=== PATIENT | male | born 1980 | race Caucasian/White ===

== ENCOUNTER 2020-06-22 06:45 | Emergency (ER) | payer OTHER, SELFPAY ==
[2020-06-22 06:50] VITALS: BP 156/108; PULSE 82; RESP 18; TEMP 36.7; O2SAT 96
--- NOTE | 2020-06-22 07:14 | ED.DENTAL ---
HPI - Dental/Oral General Chief complaint: Dental/Oral Stated complaint: facial swelling, dental issues Time Seen by Provider: 06/22/20 07:13 Source: patient and family Mode of arrival: ambulatory Limitations: no limitations History of Present Illness HPI Narrative: Patient is a 40-year-old male who presents for evaluation of right upper molar pain with some facial swelling. Patient states symptoms have developed over the past 24 hours. Reports dull, aching pain in his right upper face with mild swelling and redness. No vision changes. No fever. No difficulty swallowing. Patient has a history of dental caries, does have dental follow-up established. Patient denies any shortness of breath or difficulty breathing. No trauma to the face. MD Complaint: tooth pain Location: Tooth # (3) Context: history of dental caries Treatment prior to arrival: none Related Data Allergies Allergy/AdvReac Type Severity Reaction Status Date / Time No Known Allergies Allergy Verified 02/17/19 15:59 Review of Systems Review of Systems: Narrative: CONSTITUTIONAL: Denies fever CARDIOVASCULAR: Denies chest pain RESPIRATORY: Denies cough or dyspnea. GASTROINTESTINAL: Denies abdominal pain SKIN: Denies rash MUSCULOSKELETAL: Denies back pain NEUROLOGIC: Denies headache [facility] Past Medical History Medical History History of coronary artery disease History of diabetes mellitus History of gastroesophageal reflux (GERD) History of hyperlipidemia Social History Social History Smoking status: Current every day smoker Gender identity (if verbalized by the patient): Male Exam Narrative: Exam Narrative: GENERAL: Awake, alert, conversant HEAD: Normocephalic, atraumatic. EYES: PERRLA and EOMI. ENT: Nares clear, no rhinorrhea or epistaxis. Mucous membranes moist. Uvula is midline. No trismus. Able to fully open mouth, extensive dental caries, decay and mild erythema about molar 3 without evidence of abscess. No purulent drainage. Gingiva are erythematous without edema. No elevation of the palate. Patient is speaking normally. Mild edema extending from the molar to the maxilla. No fluctuance. Mild induration. No significant erythema. NECK: Supple. No cervical lymphadenopathy. No neck edema. CHEST: No respiratory distress, breathing even and non labored HEART: Regular rate, sinus rhythm ABDOMEN:Non distended, non tender EXTREMITIES: Normal range of motion. No edema. SKIN: Warm, dry, no rash. NEURO:No focal deficits. Alert and oriented x3 Course Vital Signs Vital signs: Vital Signs Temperature 36.7 C 06/22/20 06:50 Pulse Rate 82 06/22/20 06:50 Respiratory Rate 18 06/22/20 06:50 Blood Pressure 156/108 H 06/22/20 06:50 Pulse Oximetry 96 06/22/20 06:50 Temperature 36.7 C 06/22/20 06:50 Pulse Rate 82 06/22/20 06:50 Respiratory Rate 18 06/22/20 06:50 Blood Pressure 156/108 H 06/22/20 06:50 Pulse Oximetry 96 06/22/20 06:50 MDM - Dental/Oral MDM Narrative Medical decision making narrative: Patient's pain is consistent with dental caries. At the time of assessment there are no signs of systemic illness, no focal signs of space-occupying abscess or lesions, no signs of [place] angina or other concerning retropharyngeal infection. The patient is controlling his secretions well without signs of airway compromise. Patient is thought reasonable for outpatient follow-up with dental evaluation. Patient given oral antibiotics and medication for analgesia. He was given strict return precautions. Differential Diagnosis Differential diagnosis: Likely gingival abscess, dental caries, toothache, dental abscess and fracture of tooth Discharge Plan Discharge Clinical Impression: Toothache, Dental caries Patient Disposition: Home, Self-Care Condition: Stable Instructions: Antibiotic Form, Toothache (
[2020-06-22] MEDS: KETOROLAC (*BKC) 60 MG/2 ML VIAL 30 MG IM (08:02)
[2020-06-22] MEDS: oxyCODONE/ACETAMINOPHEN (*CRX) 5-325 MG TABLET 1 TABLET PO (08:03)
== END 2020-06-22 08:09 | disposition home or self-care (01) ==
PROVIDERS: Emergency Provider Emergency Medicine; PCP Family Medicine
DX: K02.9 Dental caries, unspecified (principal); I25.10 Atherosclerotic heart disease of native coronary artery without angina pectoris; E11.9 Type 2 diabetes mellitus without complications; K21.9 Gastro-esophageal reflux disease without esophagitis; E78.5 Hyperlipidemia, unspecified
CPT/HCPCS: 96372; 99283; A9270; J1885

== ENCOUNTER 2021-04-03 12:23 | Emergency (ER) | payer OTHER, SELFPAY ==
--- NOTE | ~2021-04-03 | XR_ITS ---
EXAMINATION: XR ribs RT 2V EXAM DATE: 04/03/2021 13:34 INDICATION: Right lateral rib pain when coughing. No known recent injury. TECHNIQUE: Frontal projection of the upper right ribs, frontal projection of the lower right ribs, ob lique projection of the right ribs, without chest x-ray(s) for interpretation. Correlation made to c hest x-ray from earlier same date FINDINGS: There are no displaced acute right rib fractures identified. There is no soft tissue abno rmality seen. IMPRESSION: No displaced right rib fractures. Reviewed, dictated and finalized at location A. MODEL
--- NOTE | ~2021-04-03 | XR_ITS ---
EXAMINATION: XR chest 2V EXAM DATE: 04/03/2021 13:18 INDICATION: chest pain TECHNIQUE: Frontal and lateral projections of the chest obtained and reviewed. Comparison is made to prior examination from 05/13/2017. FINDINGS: The lungs are clear. There are no pleural effusions. The cardiomediastinal silhouette is within normal limits. There is no pneumothorax suspected. The bones and soft tissues are unremarkab le. IMPRESSION: No acute cardiopulmonary findings. Reviewed, dictated and finalized at location A. B PLANTER
[2021-04-03 12:28] VITALS: BP 181/98; PULSE 100; RESP 14; TEMP 36.6; O2SAT 95
[2021-04-03 12:40] VITALS: PULSE 95
[2021-04-03 12:42] VITALS: RESP 12
--- NOTE | 2021-04-03 13:19 | ED.GENADULT ---
HPI - General Adult General Chief complaint: Unspecified Stated complaint: rib pain Time Seen by Provider: 04/03/21 13:01 History of Present Illness HPI narrative: 40-year-old male presents to the emergency room with right anterior chest wall pain that radiates to his back for 3 to 4 weeks. Patient states he has a chronic cough. States when coughing he developed the chest pain. Denies injury or trauma to the chest wall. Reports having an albuterol inhaler, which does not relieve his coughing. Related Data Allergies Allergy/AdvReac Type Severity Reaction Status Date / Time No Known Allergies Allergy Verified 02/17/19 15:59 Review of Systems Review of Systems: CONSTITUTIONAL: Denies fever, chills, or sweats. EYES: Denies visual changes, redness, or discharge. ENT: Denies rhinorrhea, congestion, sore throat, or otalgia. CARDIOVASCULAR: Denies chest pain, palpitations, or edema. RESPIRATORY: Reports cough. GASTROINTESTINAL: Denies abdominal pain, nausea, vomiting, or diarrhea. GENITOURINARY: Denies dysuria or hematuria. SKIN: Denies rash or itching. MUSCULOSKELETAL: Denies back pain, joint pain, or myalgia. NEUROLOGIC: Denies headache, numbness, dizziness, or weakness. PSYCHIATRIC: Denies anxiety or depression. [facility] Past Medical History Medical History History of coronary artery disease History of diabetes mellitus History of gastroesophageal reflux (GERD) History of hyperlipidemia Social History Social History Smoking status: Current every day smoker Gender identity (if verbalized by the patient): Male Exam Narrative: GENERAL: Well-appearing, well-nourished, and in no acute distress. HEAD: Normocephalic, atraumatic. EYES: PERRLA and EOMI. ENT: Nares clear, no rhinorrhea or epistaxis. Mucous membranes moist. NECK: Supple. No adenopathy or masses. No carotid bruits or JVD CHEST: Clear to auscultation. No respiratory distress. No wheezes rales or rhonchi HEART: Regular rate and rhythm. No murmur heard. Normal peripheral pulses. ABDOMEN: Soft, nontender, nondistended, normal active bowel sounds. EXTREMITIES: Normal range of motion. No edema. SKIN: Warm, dry, no rash. NEURO: No focal deficits. Alert and oriented x3. PSYCH: Normal mood and affect. Course Vital Signs Vital signs: Vital Signs Temperature 36.6 C 04/03/21 12:28 Pulse Rate 100 04/03/21 12:28 Respiratory Rate 14 04/03/21 12:28 Blood Pressure 181/98 H 04/03/21 12:28 Pulse Oximetry 95 04/03/21 12:28 Temperature 36.6 C 04/03/21 12:28 Pulse Rate 95 04/03/21 12:40 Respiratory Rate 12 04/03/21 12:42 Blood Pressure 181/98 H 04/03/21 12:28 Pulse Oximetry 95 04/03/21 12:28 Medical Decision Making MDM Narrative Medical decision making narrative: 40-year-old male presents emergency room with 3 weeks of right anterior chest pain that can radiate to his back when he is taking a deep breath. Patient attributes this to his chronic coughing. Chest x-ray and right rib series demonstrated no acute abnormalities. D-dimer was negative. Suspect costochondritis versus muscle spasms. Will refer patient back to PCP. Medical Records Medical records reviewed: Yes I reviewed the external patient's medical records. Vital Signs Vital Signs: Vital Signs Temperature 36.6 C 04/03/21 12:28 Pulse Rate 100 04/03/21 12:28 Respiratory Rate 14 04/03/21 12:28 Blood Pressure 181/98 H 04/03/21 12:28 Pulse Oximetry 95 04/03/21 12:28 Temperature 36.6 C 04/03/21 12:28 Pulse Rate 95 04/03/21 12:40 Respiratory Rate 12 04/03/21 12:42 Blood Pressure 181/98 H 04/03/21 12:28 Pulse Oximetry 95 04/03/21 12:28 Lab Data Lab results reviewed: Yes I reviewed the patient's lab results. Labs: Lab Results 04/03/21 Range/Units 14:51 D-Dimer 0.27 (<0.48) ug/mL Discharge Plan Discharge Clin
[2021-04-03] MEDS: KETOROLAC 30 MG/ML VIAL (*BKC) IV PUSH (15:06)
[2021-04-03 15:12] LABS: D Dimer 0.27 ug/mL (<0.48)
[2021-04-03 15:45] VITALS: BP 145/86; PULSE 83; RESP 19; O2SAT 97
== END 2021-04-03 16:18 | disposition home or self-care (01) ==
PROVIDERS: Emergency Provider Nurse Practitioner Family; PCP Family Medicine
DX: M94.0 Chondrocostal junction syndrome [Tietze] (principal); M62.838 Other muscle spasm; I25.10 Atherosclerotic heart disease of native coronary artery without angina pectoris; E11.9 Type 2 diabetes mellitus without complications; K21.9 Gastro-esophageal reflux disease without esophagitis; E78.5 Hyperlipidemia, unspecified; F17.210 Nicotine dependence, cigarettes, uncomplicated
CPT/HCPCS: 36415; 71046; 71100; 85380; 96374; 99284; J1885

== ENCOUNTER 2022-02-12 13:11 | Emergency (ER) | payer OTHER, SELFPAY ==
--- NOTE | ~2022-02-12 | XR_ITS ---
EXAMINATION: XR chest 2V 02/12/2022 13:40 INDICATION: Acute chest pain. Chronic cough. PROCEDURE: 2 view chest COMPARISON: 04/03/2021 FINDINGS: The lungs are clear. The cardiomediastinal silhouette is within normal limits. There are no pleural effusions. There is no pneumothorax suspected. IMPRESSION: 1: NO ACUTE CARDIOPULMONARY DISEASE. Reviewed, dictated and finalized at location A. OGRAPH PRINTER
[2022-02-12 13:17] VITALS: BP 139/81; PULSE 84; RESP 20; TEMP 36.9; O2SAT 97
--- NOTE | 2022-02-12 13:26 | ED.CHESTPAIN ---
HPI - Chest Pain General Stated Complaint: Chest Pain Time Seen by Provider: 02/12/22 13:27 History of Present Illness HPI narrative: Patient presents with mid sternal chest pain. Patient states he has a cardiac history. Patient does report shortness of breath but is a smoker. Patient denies any radiation of the pain. Patient states he had a heart attack in 2018 and had 2 stents placed at that time. Related Data Home Medications Medication Instructions Recorded Confirmed aspirin 81 mg tablet,delayed mg 02/12/22 release atorvastatin 80 mg tablet mg 02/12/22 02/12/22 dapagliflozin 10 mg tablet 10 mg PO BID 02/12/22 02/12/22 (Farxiga) divalproex 250 mg tablet,extended mg PO 02/12/22 release 24 hr glipizide 10 mg tablet 10 mg PO BID 02/12/22 02/12/22 linagliptin 5 mg tablet (Tradjenta) 5 mg PO DAILY 02/12/22 02/12/22 metoprolol succinate 50 mg 50 mg PO DAILY 02/12/22 02/12/22 tablet,extended release 24 hr omeprazole 20 mg capsule,delayed 20 mg PO DAILY 02/12/22 02/12/22 release Allergies Allergy/AdvReac Type Severity Reaction Status Date / Time No Known Allergies Allergy Verified 02/12/22 13:17 Review of Systems Review of Systems: CONSTITUTIONAL: Denies fever, chills, or sweats. EYES: Denies visual changes, redness, or discharge. ENT: Denies rhinorrhea, congestion, sore throat, or otalgia. CARDIOVASCULAR: Denies palpitations, or edema. Reports midsternal chest pain RESPIRATORY: Denies cough or dyspnea. GASTROINTESTINAL: Denies abdominal pain, nausea, vomiting, or diarrhea. GENITOURINARY: Denies dysuria or hematuria. SKIN: Denies rash or itching. MUSCULOSKELETAL: Denies back pain, joint pain, or myalgia. NEUROLOGIC: Denies headache, numbness, or weakness. PSYCHIATRIC: Denies anxiety or depression. [facility] Past Medical History Medical History History of coronary artery disease History of diabetes mellitus History of gastroesophageal reflux (GERD) History of hyperlipidemia Social History Social History Smoking status: Current every day smoker Gender identity (if verbalized by the patient): Male Comments At time of signature, agree with nursing past medical, surgical, social and family history. There is no relevant family history pertinent to the presenting complaint Exam Narrative: GENERAL: Well-appearing, well-nourished, and in no acute distress. HEAD: Normocephalic, atraumatic. EYES: PERRLA and EOMI. ENT: Nares clear, no rhinorrhea or epistaxis. Mucous membranes moist. NECK: Supple. CHEST: Clear to auscultation. No respiratory distress. HEART: Regular rate and rhythm. No murmur heard. Normal peripheral pulses. ABDOMEN: Soft, nontender, nondistended, normal active bowel sounds. EXTREMITIES: Normal range of motion. No edema. SKIN: Warm, dry, no rash. NEURO: No focal deficits. Alert and oriented x3. Padmini Coma Scale Eye Opening: Spontaneous 4 [place] Coma Scale Motor: Obeys Commands 6 Padmini Coma Scale Verbal: Oriented 5 Padmini Coma Scale Total 15 Chest: Other: Midsternal chest pain Course Course Level of Care: Express Care Visit Vital Signs Vital signs: Vital Signs Temperature 36.9 C 02/12/22 13:17 Pulse Rate 84 02/12/22 13:17 Respiratory Rate 20 02/12/22 13:17 Blood Pressure 139/81 02/12/22 13:17 Pulse Oximetry 97 02/12/22 13:17 Oxygen Delivery Room Air 02/12/22 13:17 Temperature 36.9 C 02/12/22 13:17 Pulse Rate 84 02/12/22 13:17 Respiratory Rate 20 02/12/22 13:17 Blood Pressure 139/81 02/12/22 13:17 Pulse Oximetry 97 02/12/22 13:17 Oxygen Delivery Room Air 02/12/22 13:17 Please ERIKA schedule a followup visit with your personal physician for further evaluation and treatment. Including recheck and discussion of your blood pressure. If your symptoms persist, change or worsen significantly before you can contac
--- NOTE | 2022-02-12 13:31 | ECG_ITS ---
Measurements Intervals [place] Rate: 80 P: 48 TN: 150 QRS: 61 QRSD: 108 T: 54 QT: 361 QTc: 419 Interpretive Statements SINUS RHYTHM EARLY PRECORDIAL R/S TRANSITION BORDERLINE ECG NO PREVIOUS ECG AVAILABLE FOR COMPARISON Electronically Signed On 02-12-2022 15:08:43 MANAGER OF [employer]LOBAL by Yvon Pringle D.O.
--- NOTE | 2022-02-12 14:11 | PC.NURSE ---
noted pt/significant other previously stated will drive to [facility] er, did not want ambulance transfer, related to hx [place] and persistant CP.
== END 2022-02-12 13:55 | disposition short-term general hospital (02) ==
PROVIDERS: Emergency Provider Nurse Practitioner Family; PCP Family Medicine
DX: R07.9 Chest pain, unspecified (principal); F17.200 Nicotine dependence, unspecified, uncomplicated; I25.10 Atherosclerotic heart disease of native coronary artery without angina pectoris; E11.9 Type 2 diabetes mellitus without complications; K21.9 Gastro-esophageal reflux disease without esophagitis; E78.5 Hyperlipidemia, unspecified; Z95.5 Presence of coronary angioplasty implant and graft; I25.2 Old myocardial infarction; Z79.82 Long term (current) use of aspirin
CPT/HCPCS: 71046; 93005; 99213; G0463

== ENCOUNTER 2024-01-10 16:33 | Emergency (ER) | payer OTHER, SELFPAY ==
[2024-01-10 16:48] VITALS: BP 111/69; PULSE 88; RESP 20; TEMP 36.4; O2SAT 100
--- NOTE | 2024-01-10 17:42 | ED_ITS ---
HPI - Dental/Oral General Chief complaint: Dental/Oral Stated complaint: Tooth abcess Time Seen by Provider: 01/10/24 17:30 Source: patient, RN notes reviewed and old records reviewed Mode of arrival: ambulatory Limitations: no limitations History of Present Illness HPI Narrative: 43 year old male accompanied by presents to express care with complaints of left upper dental pain with back 2 teeth broken off and gum red and swollen with no drainage noted, some left sided facial swelling present for the past 2-3 days. Patient just had open heart surgery December 26 at [facility] with 5 vessel cabbage performed and is on Plavix and aspirin daily, he has been taking Tylenol for his discomfort. Patient has numerous broken and missing teeth and teeth with caries, states had set up at [facility] to get teeth pulled then they said wouldn't accept his insurance. Patient does report that he has quit smoking about a month ago.Patient is afebrile. MD Complaint: tooth pain Location: Tooth # (14 and 15) Onset (ago): day(s) (2-3 days) Severity scale (1-10): 9 Treatment prior to arrival: other (Tylenol) Related Data Home Medications Medication Instructions Recorded Confirmed aspirin 81 mg tablet,delayed 81 mg PO DAILY 02/12/22 01/10/24 release atorvastatin 80 mg tablet 80 mg PO DAILY 02/12/22 01/10/24 glipizide 10 mg tablet 10 mg PO BID 02/12/22 01/10/24 linagliptin 5 mg tablet (Tradjenta) 5 mg PO DAILY 02/12/22 01/10/24 metoprolol succinate 50 mg 50 mg PO DAILY 02/12/22 01/10/24 tablet,extended release 24 hr omeprazole 20 mg capsule,delayed 20 mg PO DAILY 02/12/22 01/10/24 release blood-glucose sensor ([employer] G7 01/10/24 01/10/24 Sensor device) clopidogrel 75 mg tablet 75 mg PO DAILY 01/10/24 01/10/24 cyclobenzaprine 10 mg tablet 10 mg PO TID PRN Muscle Spasm 01/10/24 01/10/24 isosorbide mononitrate 30 mg 30 mg PO DAILY 01/10/24 01/10/24 tablet,extended release 24 hr losartan 100 mg tablet 100 mg PO DAILY 01/10/24 01/10/24 metformin 1,000 mg tablet 1,000 mg PO BID 01/10/24 01/10/24 sennosides 8.6 mg-docusate sodium 1 tab-cap PO BID PRN Constipation 01/10/24 01/10/24 50 mg tablet (Senexon-S) Allergies Allergy/AdvReac Type Severity Reaction Status Date / Time No Known Allergies Allergy Verified 01/10/24 17:09 Review of Systems Review of Systems: CONSTITUTIONAL: Denies fever, chills, or sweats. ENT: Denies rhinorrhea, congestion, sore throat, or otalgia. Reports dental pain to left upper posterior molars with facial swelling noted left side of face CARDIOVASCULAR: Denies chest pain, palpitations, or edema. RESPIRATORY: Denies cough or dyspnea. SKIN: Denies rash or itching. MUSCULOSKELETAL: Denies myalgia. NEUROLOGIC: Denies headache All systems reviewed & are unremarkable except as noted in HPI and below PMFSH Past Medical History Medical History (Updated 01/11/24 @ 00:00 by Troy Monteiro) History of coronary artery disease History of diabetes mellitus History of gastroesophageal reflux (GERD) History of hyperlipidemia Surgical History Surgical History (Updated 01/11/24 @ 15:50 by Kristine Gabriel NP) H/O heart artery stent History of open heart surgery December 5 vessel bypass Social History Social History (Updated 01/11/24 @ 15:46 by Kristine Gabriel NP) Smoking packs per day: 1 Smoking cigarettes per day: 20.0 Smoking status: Former smoker Alcohol intake: unknown Substance use type: does not use Living arrangements: with family Gender identity (if verbalized by the patient): Male Comments At time of signature, agree with nursing past medical, surgical, social and family history. There is no relevant family history pertinent to the presenting complaint Exam Narrative: GENERAL: Well-appearing, well-nourished, and in no acute distress. HEAD: Normocephalic, atraumatic. EYES: PERRLA and EOMI. ENT: Nares clear, no rhinorrhea or epistaxis. Mucous membranes moist. Missing teeth, broken teeth, caries, red swollen gums with broken molars left upper gums with some facial swelling, no trismus or Phoenix angina, some left facial swelling. NECK: Supple. no lymphadenopathy CHEST: Clear to auscultation. No respiratory distress.[id number] on room air HEART: Regular rate and rhythm. No murmur heard. Normal peripheral pulses. SKIN: Warm, dry, no rash. NEURO: No focal deficits. Alert and oriented x3. Course Course Emergency Course: Patient is aware of diagnosis, understands and agrees to treatment plan. Anticipatory guidance given. Patient agrees to follow-up as directed and is aware of reasons to seek care at the emergency department. Portions of this record may have been created with voice recognition software Level of Care: Express Care Visit Vital Signs Vital signs: Vital Signs Temperature 36.4 C 01/10/24 16:48 Pulse Rate 88 01/10/24 16:48 Respiratory Rate 20 01/10/24 16:48 Blood Pressure 111/69 01/10/24 16:48 Pulse Oximetry 100 01/10/24 16:48 Oxygen Delivery Room Air 01/10/24 16:48 Temperature 36.4 C 01/10/24 16:48 Pulse Rate 88 01/10/24 16:48 Respiratory Rate 20 01/10/24 16:48 Blood Pressure 111/69 01/10/24 16:48 Pulse Oximetry 100 01/10/24 16:48 Oxygen Delivery Room Air 01/10/24 16:48 Reviewed MDM - Dental/Oral MDM Narrative Medical decision making narrative: Patients pain and complaint coupled with physical findings are consistent with dentalgia. There are no focal signs of space occupying lesions that are compromising to the airway; no dysphagia, odynophagia, dysphonia, or dyspnea. No uvular deviation or soft palate edema. Patient is non-toxic appearing. The floor of the mouth is soft with no signs of Phoenix's Angina; no induration below mandible, no neck pain.? Patient is without trismus or drooling and able to swallow secretions.? Patient is felt appropriate for discharge home with dental follow up. Differential Diagnosis Differential diagnosis: Likely gingival abscess, dental caries, dental abscess and other (Dental pain) Medical Records Attestation: I reviewed the patient's medical records. Critical Care Time Critical Care Time Critical Care Time: No Discharge Plan Discharge Clinical Impression: Dental abscess Patient Disposition: Home, Self-Care Condition: Stable Instructions: Antibiotic Form, Dental Abscess (ED) Additional Instructions: Avoid temperature extremes May apply heat or ice to the face Gentle brushing and flossing Antibiotic as directed Tylenol for lesser pain Use ibuprofen regularly Follow-up with the dentist as soon as possible--see the list provided If your symptoms persist, change or worsen significantly before you can contact your personal physician then please, without delay, go to the emergency department for further evaluation. Follow-up with PCP in 7-10 days or sooner if needed Prescriptions: New cephalexin 500 mg capsule 500 mg PO Q8H Qty: 30 0RF Rx Instructions: take all doses No Action atorvastatin 80 mg tablet 80 mg PO DAILY metoprolol succinate 50 mg tablet extended release 24 hr 50 mg PO DAILY glipizide 10 mg tablet 10 mg PO BID aspirin 81 mg tablet,delayed release (DR/EC) 81 mg PO DAILY omeprazole 20 mg capsule,delayed release(DR/EC) 20 mg PO DAILY Tradjenta 5 mg tablet 5 mg PO DAILY metformin 1,000 mg tablet 1,000 mg PO BID losartan 100 mg tablet 100 mg PO DAILY isosorbide mononitrate 30 mg tablet extended release 24 hr 30 mg PO DAILY (DME) [employer] G7 Sensor Device MISCELLANEOUS clopidogrel 75 mg tablet 75 mg PO DAILY sennosides-docusate sodium [Senexon-S] 8.6-50 mg tablet 1 tab-cap PO BID PRN (Reason: Constipation) cyclobenzaprine 10 mg tablet 10 mg PO TID PRN (Reason: Muscle Spasm) Follow-up/Referrals: Andrew,Claude Gar MD [Primary Care Provider] - Stand Alone Forms: Work/School Release IP Time of Disposition: 17:50 Quality Padmini Coma Scale Eyes: Open Verbal: Oriented and Alert Motor: Follows Commands Padmini Coma Total Score: 15
== END 2024-01-10 17:55 | disposition home or self-care (01) ==
PROVIDERS: Emergency Provider Registered Nurse; PCP Family Medicine
DX: K04.7 Periapical abscess without sinus (principal); Z87.891 Personal history of nicotine dependence; I25.10 Atherosclerotic heart disease of native coronary artery without angina pectoris; E11.9 Type 2 diabetes mellitus without complications; Z79.84 Long term (current) use of oral hypoglycemic drugs; E78.5 Hyperlipidemia, unspecified; Z95.5 Presence of coronary angioplasty implant and graft; Z79.82 Long term (current) use of aspirin
CPT/HCPCS: 99213; G0463

== ENCOUNTER 2024-01-22 16:15 | Emergency (ER) | payer OTHER, SELFPAY ==
[2024-01-22 16:23] VITALS: BP 114/77; PULSE 99; RESP 16; TEMP 36.3; O2SAT 97
[2024-01-22 17:56] LABS: EDSTREPNEGPOS1 Positive (Negative)
--- NOTE | 2024-01-22 17:58 | ED.GENADULT ---
HPI - General Adult General Chief complaint: Upper Respiratory Infection Stated complaint: Sore Throat Source: patient Mode of arrival: ambulatory Limitations: no limitations History of Present Illness HPI narrative: Patient presents for evaluation of sore throat for last week. He indicates he has a history of strep pharyngitis in this feels similar. Fever, chills, nausea, vomiting. He has had some diarrhea. No recent sick contacts to his knowledge. He states he is currently on cephalexin for a dental infection. He smokes 1/2-1 ppd. Related Data Home Medications ?Medication ?Instructions ?Recorded ?Confirmed ?Last Taken ?Type aspirin 81 mg tablet,delayed 81 mg PO DAILY 02/12/22 01/22/24 Unknown History release atorvastatin 80 mg tablet 80 mg PO DAILY 02/12/22 01/22/24 Unknown History glipizide 10 mg tablet 10 mg PO BID 02/12/22 01/22/24 Unknown History linagliptin 5 mg tablet (Tradjenta) 5 mg PO DAILY 02/12/22 01/22/24 Unknown History metoprolol succinate 50 mg 50 mg PO DAILY 02/12/22 01/22/24 Unknown History tablet,extended release 24 hr omeprazole 20 mg capsule,delayed 20 mg PO DAILY 02/12/22 01/22/24 Unknown History release blood-glucose sensor ([employer] G7 01/10/24 01/10/24 Unknown History Sensor device) clopidogrel 75 mg tablet 75 mg PO DAILY 01/10/24 01/22/24 Unknown History cyclobenzaprine 10 mg tablet 10 mg PO TID PRN Muscle Spasm 01/10/24 01/22/24 Unknown History isosorbide mononitrate 30 mg 30 mg PO DAILY 01/10/24 01/22/24 Unknown History tablet,extended release 24 hr losartan 100 mg tablet 100 mg PO DAILY 01/10/24 01/22/24 Unknown History metformin 1,000 mg tablet 1,000 mg PO BID 01/10/24 01/22/24 Unknown History sennosides 8.6 mg-docusate sodium 1 tab-cap PO BID PRN Constipation 01/10/24 01/22/24 Unknown History 50 mg tablet (Senexon-S) dapagliflozin propanediol 10 mg mg 01/22/24 Unknown History tablet (Farxiga) divalproex 500 mg tablet,extended mg PO 01/22/24 Unknown History release 24 hr furosemide 40 mg tablet mg 01/22/24 Unknown History glipizide 5 mg tablet mg 01/22/24 Unknown History methocarbamol 500 mg tablet mg 01/22/24 Unknown History oxycodone 5 mg tablet mg 01/22/24 Unknown History pregabalin 50 mg capsule mg 01/22/24 Unknown History Allergies Allergy/AdvReac Type Severity Reaction Status Date / Time No Known Allergies Allergy Verified 01/22/24 16:52 Review of Systems Review of Systems: CONSTITUTIONAL: Denies fever, chills, or sweats. EYES: Denies visual changes, redness, or discharge. ENT: Reports sore throat. Denies rhinorrhea, congestion, or otalgia. CARDIOVASCULAR: Denies chest pain, palpitations, or edema. RESPIRATORY: Denies cough or dyspnea. GASTROINTESTINAL: Reports diarrhea. Denies abdominal pain, nausea, vomiting GENITOURINARY: Denies dysuria or hematuria. SKIN: Denies rash or itching. MUSCULOSKELETAL: Denies back pain, joint pain, or myalgia. NEUROLOGIC: Denies headache, numbness, dizziness, or weakness. PSYCHIATRIC: Denies anxiety or depression. [facility], [facility] Past Medical History Medical History History of hyperlipidemia History of gastroesophageal reflux (GERD) History of coronary artery disease History of diabetes mellitus Surgical History Surgical History H/O heart artery stent History of open heart surgery December 5 vessel bypass Social History Social History Smoking packs per day: 1 Smoking cigarettes per day: 20.0 Smoking status: Former smoker Alcohol intake: unknown Substance use type: does not use Living arrangements: with family Gender identity (if verbalized by the patient): Male Exam Narrative: GENERAL: Smells strongly of tobacco. Well-appearing, well-nourished, and in no acute distress. HEAD: Normocephalic, atraumatic. EYES: PERRLA and EOMI. ENT: Nares clear, no rhinorrhea or epistaxis. Mucous membranes moist. Oropharynx without tonsillar hypertrophy exudate or other lesions. There is posterior pharyngeal erythema. Bilateral TMs pearly saini nonbulging NECK: Supple. No adenopathy or masses. No carotid bruits or JVD CHEST: Clear to auscultation. No respiratory distress. No wheezes rales or rhonchi HEART: Regular rate and rhythm. No murmur heard. Normal peripheral pulses. ABDOMEN: Soft, nontender, nondistended, normal active bowel sounds. EXTREMITIES: Normal range of motion. No edema. SKIN: Warm, dry, no rash. NEURO: No focal deficits. Alert and oriented x3. PSYCH: Normal mood and affect. Course Course Emergency Course: This is a 43-year-old male who presented for evaluation of sore throat. Rapid strep positive. Will treat with amoxicillin. Increase hydration. OTC agents for symptom management. Advised on smoking cessation. Go to the ER for worsening symptoms. Pt in agreement with plan of care. Level of Care: Express Care Visit Vital Signs Vital signs: Vital Signs Temperature 36.3 C L 01/22/24 16:23 Pulse Rate 99 01/22/24 16:23 Respiratory Rate 16 01/22/24 16:23 Blood Pressure 114/77 01/22/24 16:23 Pulse Oximetry 97 01/22/24 16:23 Oxygen Delivery Room Air 01/22/24 16:23 Temperature 36.3 C L 01/22/24 16:23 Pulse Rate 99 01/22/24 16:23 Respiratory Rate 16 01/22/24 16:23 Blood Pressure 114/77 01/22/24 16:23 Pulse Oximetry 97 01/22/24 16:23 Oxygen Delivery Room Air 01/22/24 16:23 Medical Decision Making Vital Signs Vital Signs: Vital Signs Temperature 36.3 C L 01/22/24 16:23 Pulse Rate 99 01/22/24 16:23 Respiratory Rate 16 01/22/24 16:23 Blood Pressure 114/77 01/22/24 16:23 Pulse Oximetry 97 01/22/24 16:23 Oxygen Delivery Room Air 01/22/24 16:23 Temperature 36.3 C L 01/22/24 16:23 Pulse Rate 99 01/22/24 16:23 Respiratory Rate 16 01/22/24 16:23 Blood Pressure 114/77 01/22/24 16:23 Pulse Oximetry 97 01/22/24 16:23 Oxygen Delivery Room Air 01/22/24 16:23 Lab Data Labs: Lab Results 01/22/24 Range/Units 17:54 POC Grp A Strep Screen Positive (Negative) Discharge Plan Discharge Clinical Impression: Strep throat Patient Disposition: Home, Self-Care Condition: Stable Instructions: Antibiotic Form, Strep Throat (ED) Patient Language: Gambian Prescriptions: New amoxicillin 500 mg tablet 500 mg PO Q12H Qty: 20 0RF No Action atorvastatin 80 mg tablet 80 mg PO DAILY metoprolol succinate 50 mg tablet extended release 24 hr 50 mg PO DAILY glipizide 10 mg tablet 10 mg PO BID aspirin 81 mg tablet,delayed release (DR/EC) 81 mg PO DAILY omeprazole 20 mg capsule,delayed release(DR/EC) 20 mg PO DAILY Tradjenta 5 mg tablet 5 mg PO DAILY furosemide 40 mg tablet methocarbamol 500 mg tablet divalproex 500 mg tablet extended release 24 hr PO glipizide 5 mg tablet oxycodone 5 mg tablet pregabalin 50 mg capsule dapagliflozin propanediol [Farxiga] 10 mg tablet metformin 1,000 mg tablet 1,000 mg PO BID losartan 100 mg tablet 100 mg PO DAILY isosorbide mononitrate 30 mg tablet extended release 24 hr 30 mg PO DAILY (DME) Dexcom G7 Sensor Device MISCELLANEOUS clopidogrel 75 mg tablet 75 mg PO DAILY sennosides-docusate sodium [Senexon-S] 8.6-50 mg tablet 1 tab-cap PO BID PRN (Reason: Constipation) cyclobenzaprine 10 mg tablet 10 mg PO TID PRN (Reason: Muscle Spasm) cephalexin 500 mg capsule 500 mg PO Q8H Qty: 30 0RF Rx Instructions: take all doses Follow-up/Referrals: Andrew,Claude Gar MD [Primary Care Provider] - Time of Disposition: 17:57
== END 2024-01-22 18:00 | disposition home or self-care (01) ==
PROVIDERS: Emergency Provider Nurse Practitioner; PCP Family Medicine
DX: J02.0 Streptococcal pharyngitis (principal); E78.5 Hyperlipidemia, unspecified; I25.10 Atherosclerotic heart disease of native coronary artery without angina pectoris; E11.9 Type 2 diabetes mellitus without complications; Z79.82 Long term (current) use of aspirin; Z79.899 Other long term (current) drug therapy; Z79.891 Long term (current) use of opiate analgesic; Z87.891 Personal history of nicotine dependence
CPT/HCPCS: 87880; 99213; G0463